=== PATIENT | female | born 1945 | race Caucasian/White ===

== ENCOUNTER 2016-05-25 15:45 | Emergency (ER) | payer MEDICARE, OTHER ==
[~2016-05-25 15:45] MED LIST: *UNABLE2; ALEVE220 MG PO; AMB10 PO; ANTIBIOTIC PO; ASA5GR PO; ASAB PO; ATEN25 PO; B COMPLETE PO; BIOIDENTICAL HORMONE PO; BIOIDENTICAL HORMONE SL; COSAMIN DS1 TAB PO; DIL2TAB PO; FISH-EPA1000 MG PO; FLONASE NAS; FORTAMET500 MG PO; GENTEAL MILD0.2 % OPH; GLUCPH PO; HCTZ25B PO; IBU800 PO; ILEVRO1.7 ML OPH; IVGENTA IV; K-99 PO; KDUR20 PO; KLOR-CON 1010 MEQ PO; KLOR-CON M2020 MEQ PO; KURIC2 % TOP; L20 PO; LEXAPRO10 PO; LOTEMAX OPH SUSP5 ML OPH; LOTEMAX0.5 % OPH; METANX PO; METHOC500B PO; MULTIPLE VIT PO; MULTIVIT/MIN PO; NEUR100 PO; NEUR400 PO; NORCO1 TA1 PO; NORV10 PO; OMNICEF300 PO; OS500+D PO; OSTEO BI-FLX PO; OTC ALLERGY TABLET PO; OTC FISH OIL PO; OXYCOD PO; PCET PO; POTASSIUM95 MG PO; PROAIR HFA INH; PROBIOTIC PO; PYR200 PO; QUESTRAN4 GM PO; RESTORIL30 MG PO; SINGULAIR1 PO; SKELAXIN8 PO; SPIRIVA INH; SYMBICORT 160/41 INH INH; TESS PO; VIT B-SIX 50 MG50 MG PO; VITAMIN D1000 UNI1 PO; VITAMIN D31000 UNIT PO; VITC500 PO; VOLTAREN1 % TOP; XARELTO20 MG PO; ZYRTEC ALLGY10 MG PO; [UNRECOGNIZED DRUG - CODE] IV; [UNRECOGNIZED DRUG - MIXTURE] PO; [UNRECOGNIZED DRUG - OTHER] SL
[2016-06-10] MEDS ORDERED: SINGULAIR1 PO (12:48)
[2016-06-19] MEDS ORDERED: NORCO1 TA1 PO (13:25)
[2016-10-23] MEDS ORDERED: ATEN25 PO (15:04)
[2016-10-23] MEDS ORDERED: XARELTO20 MG PO (15:04)
[2016-10-23] MEDS ORDERED: NEUR100 PO (15:05)
[2016-10-23] MEDS ORDERED: NEUR400 PO (15:05)
[2016-10-23] MEDS ORDERED: MONODOX100 MG PO (15:06)
[2016-10-23] MEDS ORDERED: SYMBICORT 160/41 INH INH (15:06)
[2016-10-23] MEDS ORDERED: K-TABS10 MEQ PO (15:06)
[2016-10-23] MEDS ORDERED: RESTORIL30 MG PO (15:07)
[2016-10-23] MEDS ORDERED: HYDROCHLOROT12.5 MG (15:07)
[2016-10-24] MEDS ORDERED: ULTRAM50 PO ×2 (11:31→11:32)
== END 2016-05-25 17:43 | disposition home or self-care (01) ==
LOC: ER 15:45
DX: S20.211A Contusion of right front wall of thorax, initial encounter (principal); S60.211A Contusion of right wrist, initial encounter; S80.01XA Contusion of right knee, initial encounter; I10 Essential (primary) hypertension; F41.9 Anxiety disorder, unspecified; E11.9 Type 2 diabetes mellitus without complications; Z87.442 Personal history of urinary calculi; Z88.2 Allergy status to sulfonamides; Z88.5 Allergy status to narcotic agent; Z88.8 Allergy status to other drugs, medicaments and biological substances; Z88.1 Allergy status to other antibiotic agents; Z79.899 Other long term (current) drug therapy; W19.XXXA Unspecified fall, initial encounter
CPT/HCPCS: 70450; 71020; 73110-LT; 73560-50; 99284; A9270-GY

== ENCOUNTER 2016-05-28 23:15 | Inpatient (IN) | payer MEDICARE, OTHER ==
--- NOTE | ~2016-05-28 | OP ---
Record Of Operation [facility] [address] [place]. [address] NAME: LORI THURMAN : 49 STATUS : ADM IN PAT#: [id number] AGE: 70 ADM/REG DATE : 05/28/16 MR#: [id number] REPORT SERV DATE: 06/05/16 DICTATED BY: Sam MORALES DATE: 06/04/16 REPORT STATUS : Draft TRANSCRIBED BY: MODL DATE: 06/04/16 DATE OF PROCEDURE: 06/04/2016 PREOPERATIVE DIAGNOSIS: Right distal ureteral stones with partial obstruction and urosepsis. POSTOPERATIVE DIAGNOSIS: Right distal ureteral stones with partial obstruction and urosepsis. PROCEDURES: Cystoscopy, right retrograde pyelography, stone manipulation, and double-J stent placement. SURGEON: Sam Morales M.D. ANESTHESIA: General with LMA. COMPLICATIONS: None. DRAINS: 7-Rwandan x 22 cm Contour double-J stent. BRIEF HISTORY: Ms. Thurman is a 70-year-old white female, admitted on 05/28/2016 with evidence of sepsis. She had urine and blood cultures positive for Proteus. I saw her yesterday in consultation. A CT scan showed 2 and 4 mm stones in the right distal ureter, and she has been added on for stent placement with planned delayed ureteroscopy. The risks of bleeding, infection, anesthesia among others were discussed including worsening of her infection. There were no unanswered questions. DESCRIPTION OF PROCEDURE: Under excellent general anesthesia, the patient was prepped and draped in the standard lithotomy position. Cystoscopy was performed with a 30-degree lens, revealed a moderate cystocele. The bladder showed normal orifices without tumors, stones, or foreign bodies. An 8-Rwandan cone-tipped catheter was used to perform a right retrograde pyelogram. It showed a filling defect in the right distal ureter consistent with known stone. There was some pelvic caliectasis, but the calices appeared reasonably delicate. I inserted an angled glidewire through a 5-Rwandan open-ended catheter and advanced the catheter into the renal pelvis. The urine was concentrated, but not grossly purulent. I re inserted the wire and then placed a 7-Rwandan x 22 cm Contour double-J stent which coiled nicely in the renal pelvis and bladder. The case was terminated. The patient was taken to the recovery. I planned delayed ureteroscopy in one to two weeks with stone extraction and stent exchange. PARVIN/SETH Sam Morales M.D. Record Of Operation [address] [address] NAME: LORI THURMAN : 49 STATUS : ADM IN PAT#: [id number] AGE: 70 ADM/REG DATE : 05/28/16 MR#: [id number] REPORT SERV DATE: 06/05/16 DICTATED BY: Sam MORALES DATE: 06/04/16 REPORT STATUS : Draft TRANSCRIBED BY: SETH DATE: 06/04/16 / [id number] CC: MD Fawn Ash M.D.
--- NOTE | ~2016-05-28 | HP ---
History And Physical [place] [id number] [facility] [place]. [address] NAME: LORI THURMAN : 49 STATUS : ADM IN [facility]#: [id number] AGE: 70 ADM/REG DATE : 05/28/16 MR#: [id number] REPORT SERV DATE: 05/29/16 DICTATED BY: BARBI BANDA DATE: 05/29/16 REPORT STATUS : Draft TRANSCRIBED BY: MODMc DATE: 05/29/16 DATE OF ADMISSION: 05/28/2016 CHIEF COMPLAINT: Cough. HISTORY OF PRESENT ILLNESS: The patient is a 70-year-old white female with a past medical history of type 2 diabetes, hypertension, and obstructive sleep apnea who [facility]. The patient is not a great historian and so is unable to provide the best of history. Per the patient, she was last hospitalized here back in January of last year at which time she had an infected left knee prosthetic which required a left knee arthroplasty with irrigation and debridement. She says that she has been on doxycycline since that time for the left knee septic arthritis. The patient noticed that since that time, she has had persistent low-grade fevers up to about 100 degrees Fahrenheit at home. She also notes an intermittent cough that recently has worsened and is productive of clear phlegm. She notes that two nights ago, she had several episodes of nausea and vomiting. She reports a decreased p.o. intake with poor appetite over the last several days as well. She notes intermittent subjective chills. No sweats. She endorses some shortness of breath over the last few days as well. She says that her home health nurse noticed that she was little ashen and yanez looking and so sent her here to the emergency room. Here, she had evidence of pneumonia on her chest x-ray and hypotension that was refractory to IV fluids so central line was placed. She was started on vasopressors and sent to the ICU for further management. PAST MEDICAL HISTORY: 1. Type 2 diabetes. 2. Anxiety. 3. Depression. 4. History of nephrolithiasis with recurrent urinary tract infection. 5. Sarcoidosis. 6. Obstructive sleep apnea. 7. Hypertension. 8. Recent left knee septic arthritis in January 2016. HOME MEDICATIONS: See medication reconciliation form. ALLERGIES: INCLUDE SULFA AND FLUOROQUINOLONES. SOCIAL HISTORY: No tobacco, alcohol, or IV drug abuse. FAMILY HISTORY: Reviewed and positive for diabetes and coronary artery disease. REVIEW OF SYSTEMS: A 10-point review of systems negative except as mentioned in the HPI. PHYSICAL EXAMINATION: VITAL SIGNS: Temperature 100.4, heart rate 69, respiratory rate 27, blood pressure 88/53. History And Physical [place] [address] [place]. [address] NAME: LORI THURMAN : 49 STATUS : ADM IN [facility]#: [id number] AGE: 70 ADM/REG DATE : 05/28/16 MR#: [id number] REPORT SERV DATE: 05/29/16 DICTATED BY: BARBI BANDA DATE: 05/29/16 REPORT STATUS : Draft TRANSCRIBED BY: SETH DATE: 05/29/16 GENERAL: Elderly-appearing female, in no acute distress. HEENT: Pupils are equal, round, and reactive to light. Extraocular movements intact. Oropharynx clear. Dry mucous membranes. NECK: Supple. Nontender. No lymphadenopathy. No thyromegaly. No jugular venous distention. LUNGS: Crackles in anterior lung clark bilaterally. CARDIOVASCULAR: Regular rate and rhythm. No murmurs, rubs, or gallops. ABDOMEN: Soft, nontender, nondistended. Positive bowel sounds. No hepatosplenomegaly. EXTREMITIES: No cyanosis, clubbing, or edema. NEUROLOGIC: Alert and oriented x3. Cranial nerves intact. PSYCH: Mood appropriate. LABS AND IMAGING: Influenza screen negative. Metabolic profile remarkable for BUN of 22, creatinine of 1.8, lactic acid 2.5. [place] [address] with 90% neutrophils. Blood gas with a pH of 7.4, pCO2 of 32, pO2 of 53 on 28% FiO2. Urinalysis with moderate leukocyte esterase, greater than 182 white blood cells, negative nitrite. Chest x-ray shows some bibasilar airspace disease versus atelectasis. ASSESSMENT AND PLAN: The patient is a 70-year-old female with a past medical history of diabetes, hypertension, recent septic left knee arthritis who now presents with low-grade fevers, poor p.o. intake, nausea, vomiting, cough with potential evidence of pneumonia and septic shock. 1. Septic shock. The patient is status post IV fluid resuscitation. She is on Levophed. We will continue her Levophed to maintain a mean arterial pressure greater than 65. We will check blood cultures x2 as well as sputum culture. We will also get a procalcitonin and a serum cortisol level. We will begin empiric antibiotics for potential pneumonia and follow up culture data. 2. Community-acquired pneumonia. We will empirically begin community-acquired pneumonia coverage with Rocephin and azithromycin. We will follow up cultures. I will also check urine Legionella and urine Strep pneumo antigen. Influenza screen is negative. We will wean her oxygen as tolerated to maintain sats greater than 90%. I discussed the possibility of intubation with the patient, and she would like to be intubated for potentially reversible disease such as pneumonia but would not want long-term life support therapy in a terminal situation. 3. Acute renal failure. The patient's creatinine is slightly elevated at 1.8. We will maintain a MAP greater than 65 and monitor her urine output and electrolytes closely. 4. Type [address] on sliding scale insulin and give her diabetic diet. 5. The patient will be on heparin for DVT prophylaxis and Protonix for gastrointestinal prophylaxis. 6. The patient is full code. Total critical care time spent on this patient was 40 minutes. VON/SETH History And Physical [address] [address] NAME: LORI THURMAN : 49 STATUS : ADM IN [facility]#: [id number] AGE: 70 ADM/REG DATE : 05/28/16 MR#: [id number] REPORT SERV DATE: 05/29/16 DICTATED BY: BARBI BANDA DATE: 05/29/16 REPORT STATUS : Draft TRANSCRIBED BY: SETH DATE: 05/29/16 Barbi Banda MD / [id number] CC: MD Fawn Ash M.D.
--- NOTE | ~2016-05-28 | CN ---
Consultation Report [facility] [address] [place]. [address] NAME: LORI THURMAN : 49 STATUS : ADM IN PAT#: [id number] AGE: 70 ADM/REG DATE : 05/28/16 MR#: [id number] REPORT SERV DATE: 06/04/16 DICTATED BY: Sam MORALES DATE: 06/04/16 REPORT STATUS : Draft TRANSCRIBED BY: SETH DATE: 06/04/16 CONSULTATION DATE OF CONSULTATION: 06/03/2016 CHIEF COMPLAINT: Proteus mirabilis urosepsis. HISTORY OF PRESENT ILLNESS: Ms. Thurman is a 70-year-old white female, well known to me with a history of stone disease and previous urosepsis, status post multiple previous procedures. She was admitted on 05/28/2016, with a cough and concerns of problems with her chronically infected left knee prosthesis. She was found to have inflammatory urine and culture from 05/28/2016 that grew Proteus mirabilis, subsequently 2:2 blood cultures were positive for Proteus mirabilis as well, she is on Rocephin. In addition, she had a urine culture on 05/29/2016, positive for Enterococcus. She has been recommended that her antibiotics be changed to ampicillin or Ancef today. I discussed with her from a urologic standpoint. She does not really have any symptoms. She has nonspecific back pain, that is nonlateralizing. Her white count went up to 15,000 yesterday. T-max is 99.6. CT scan 05/10, showed bilateral renal stones, but no obstructing stones were or hydronephrosis. PAST MEDICAL HISTORY: Hypertension, cardiac dysrhythmia, sleep apnea, arthritis, diabetes, depression, peripheral neuropathy, urolithiasis, pulmonary embolisms, chronic left knee infection. PAST SURGICAL HISTORY: 1. She has had multiple urologic procedures since July of 2013, including multiple stent placements, ESWL, ureteroscopy with stone extraction. 2. Knee and shoulder surgery. 3. Cholecystectomy. 4. Hysterectomy. 5. Left breast lumpectomy. 6. Tonsillectomy. 7. Pacemaker. 8. Left arm surgery. CURRENT MEDICATIONS: Tenormin, Rocephin, Questran, Colace, Vibramycin, Neurontin, singular, Mycostatin, Xarelto, Restoril, Spiriva, in addition to p.r.n. medications. ALLERGIES: SULFA, PREDNISONE, CIPRO AND SHE USED TO TAKE CELECOXIB, IN ADDITION ADVERSE REACTION TO MORPHINE, CODEINE, COUMADIN, AND LOVENOX. SOCIAL HISTORY: The patient denies use of tobacco or alcohol. FAMILY HISTORY: Negative for urologic disease. Consultation Report [place] [address] [place]. [address] NAME: LORI THURMAN : 49 STATUS : ADM IN PAT#: [id number] AGE: 70 ADM/REG DATE : 05/28/16 MR#: [id number] REPORT SERV DATE: 06/04/16 DICTATED BY: Sam MORALES DATE: 06/04/16 REPORT STATUS : Draft TRANSCRIBED BY: SETH DATE: 06/04/16 REVIEW OF SYSTEMS: A full 12-point review of systems is negative except as noted above. PHYSICAL EXAMINATION: GENERAL: Uncomfortable appearing 70-year-old white female. VITAL SIGNS: Currently afebrile with normal vital signs. HEENT: Normocephalic and atraumatic. LUNGS: No respiratory distress. HEART: Regular rate and rhythm. ABDOMEN: Protuberant, nontender, and nondistended. No CVA tenderness elicited. EXTREMITIES: No peripheral edema noted. The patient is ambulatory. PERTINENT LABORATORY: Creatinine 0.59 and white count 10,500. IMPRESSION: 1. Proteus mirabilis urosepsis. 2. History of urolithiasis. PLAN: 1. I agree with the change to sensitivity directed antibiotics, that has already been ordered today. 2. We will get a CT, stones searched today. I think it is preferable to have an ultrasound to make sure that there is no obstructing stone or other urologic problem that needs intervention. PARVIN/SETH Sam Morales M.D. / [id number] CC: MD Fawn Ash M.D.
--- NOTE | ~2016-05-28 | IDS ---
Interim Discharge Summary [facility] [address] [place]. [address] NAME: LORI THURMAN : 49 STATUS : ADM IN [facility]#: [id number] AGE: 70 ADM/REG DATE : 05/28/16 MR#: [id number] REPORT SERV DATE: 06/04/16 DICTATED BY: DATE: REPORT STATUS : Draft TRANSCRIBED BY: MODL DATE: 06/03/16 ADMISSION DATE: 05/28/2016 DISCHARGE DATE: DIAGNOSES: Current interim discharge diagnoses list includes: 1. Proteus bacteremia. 2. Shock with hypotension. 3. Sepsis. 4. Urosepsis. 5. Acute kidney injury. 6. Hypoxemia. 7. Chronic anemia. 8. Diabetes mellitus type 2. 9. Hypertension. 10.Status post fall. 11.Obstructive sleep apnea. 12.Morbid obesity. HISTORY OF PRESENT ILLNESS: This is a 70-year-old white female with a past medical history of left knee septic arthritis for which she is following with Dr. Talavera on chronic doxycycline treatment for infected left knee prosthesis and left knee arthroplasty and I and D on 02/08 at [place]. Please see admission H and P per Dr. Shailesh Banda on 05/28/2016. Her admission diagnosis was cough. PROCEDURES AND IMAGIN. 05/28/2016, portable chest x-ray showed venous congestion and interstitial edema with bibasilar atelectasis and stable enlargement of the cardiac silhouette with left-sided pacemaker device. 2. 05/30/2016, portable chest x-ray showed diffuse interstitial opacity, likely interstitial edema, stable cardiomegaly. 3. 05/30/2016, right knee x-ray showed osteoarthritis with probable calcified intra- articular loose bodies and no acute right knee abnormality. 4. 05/31/2016, portable chest x-ray showed increasing vascular congestion with increasing right perihilar and right lung base atelectasis and/or infiltrate. 5. 06/03/2016, CAT scan with kidney stone protocol showed interval development of mild right obstructive uropathy with a 0.4 and 0.2 cm pair of calculi within the distal right ureter, a few centimeters above the ureteropelvic junction. Bilateral nonobstructive nephrolithiasis with overall calculus burden worse in the left compared to the right kidney. Interval development of small right pleural effusion since prior CT of the abdomen 1 month prior. HOSPITAL COURSE: The patient was discharged from CCU yesterday and I have only taken care of the patient today on 06/03/2016. The patient was admitted with a large UTI and a procalcitonin of 81.68, and a lactate of 2.5, and her urine culture came back with Proteus mirabilis. The patient has continued to be treated with Rocephin IV through this date. The patient also came back with 2 positive blood cultures of Proteus Mirabella. On 06/01/2016, Interim Discharge Summary [facility] [address] [place]. [address] NAME: LORI THURMAN : 49 STATUS : ADM IN [facility]#: [id number] AGE: 70 ADM/REG DATE : 05/28/16 MR#: [id number] REPORT SERV DATE: 06/04/16 DICTATED BY: DATE: REPORT STATUS : Draft TRANSCRIBED BY: MODL DATE: 06/03/16 the patient had a lower respiratory culture that showed abundant growth of yeast. The patient is running a low-grade temperature today, 99.4. Patient's white count is climbing back up from 10.5 to 15.8. Pharmacy had recommended to change the patient to p.o. ampicillin. After discussion with the patient and discovering her history of left knee sepsis and already being a patient of Dr. Talavera's, it was decided to discuss with Dr. Talavera, his recommendations for antibiotic for possible discharge and also to discuss about the cessation of the doxycycline during patient's stay. Dr. Talavera has consented to see the patient and to continue the IV Rocephin. He also recommended to have Dr. Brennan see the patient since the patient has had urosepsis in the past. The patient did have a clear CT of the kidneys several months prior, but has had stents and hydronephrosis before. He will be following the patient as well as Dr. Brennan. LABORATORY DATA: The patient's current labs. Sodium is 140, potassium is 4.0, chloride is 102, bicarb is 21, BUN is 8, creatinine is 0.61, GFR is 93, glucose is 92, calcium 9.0, magnesium is 1.9, phosphorus is 3.4. WBCs 15.8, hemoglobin 10.6, hematocrit 33.7, platelets 376, neutrophils are 12.62. The patient's T-max in 24 hours is 99.4. The patient is diaphoretic and is continuing to have some chilling which she says has been happening since she had her incidence of knee sepsis in January. SLC/MODL Jennifer Best NP / [id number] CC: Shailesh Banda MD
--- NOTE | ~2016-05-28 | DS ---
Discharge Summary [facility] [address] [place]. [address] NAME: LORI THURMAN : 49 STATUS : DIS IN PAT#: [id number] AGE: 70 ADM/REG DATE : 05/28/16 MR#: [id number] REPORT SERV DATE: 06/07/16 DICTATED BY: KIA NEELY DATE: 06/06/16 REPORT STATUS : Draft TRANSCRIBED BY: MODL DATE: 06/06/16 ADMISSION DATE: 05/28/2016 DISCHARGE DATE: 06/06/2016 CONSULTING PHYSICIAN: Dr. Talavera for ID. FINAL DIAGNOSES: 1. Proteus bacteremia and urinary tract infection. 2. Right ureterolithiasis status post placement of double-J stent. 3. Hypertension. 4. History of permanent pacemaker. 5. Obstructive sleep apnea. 6. 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 7. Sarcoidosis. 8. Status post septic shock. 9. Status post acute kidney injury. 10.Status post hypoxemia. 11.Status post fall. 12.Chronic anemia. 13.Morbid obesity. 14.Anxiety and depression. HOSPITAL COURSE: Please refer to the H and P done by Dr. Banda, dated on 02/29/2016 and the interim discharge summary done by Jennifer Best and . Since I took care of this patient, the patient was already improving and wants to go home. However, the patient still has this right ureterolithiasis and Dr. Brennan did a procedure which includes a cystoscopy, right retrograde pyelography, stone manipulation, and double-J stent placement. The stone was not removed and the plan is for her to follow up outpatient with Dr. Brennan to have this stone removal probably a week from now. Meanwhile, we already got the bacteria, which was Proteus, which is the same with a urinary tract infection and bacteremia and Dr. Talavera wanted the patient to continue the IV antibiotics. The patient was not too keen on the IV antibiotics, but she would want the best for her. So a midline will be placed today and she will be continuing nine more days of IV antibiotics. The patient will now be discharged with the above diagnosis. She will follow up with her PCP, Fawn Moore, in one to two weeks. Follow up with Dr. Brennan in a week. Follow up with orthopedic surgeon as scheduled in outpatient and she will be having Rocephin a g IV daily until 06/14/2016 with a weekly CBC and complete metabolic panel, the rest of her home medications would include atenolol 25 mg at bedtime, Questran 4 g a day, doxycycline 100 mg twice a day, gabapentin 400 mg at bedtime and 200 mg in the morning, Singulair 10 mg in the morning, fatty acid 1200 mg a day, Xarelto 20 mg with supper, Restoril 15 mg at bedtime, Spiriva one capsule inhaled a day, Symbicort 160/4.5 two puffs twice a day. She will be off her Norvasc, Lasix, and potassium because her blood pressure has been in the low normal. She can continue her Metanx one tablet twice a day, vitamin C 1000 mg a day, ProAir, and Flonase as needed. Tylenol and as needed. This has been discussed with the patient. She agreed and understood the plan. Discharge Summary [address] [address] NAME: LORI THURMAN : 49 STATUS : DIS IN PAT#: [id number] AGE: 70 ADM/REG DATE : 05/28/16 MR#: [id number] REPORT SERV DATE: 06/07/16 DICTATED BY: KIA NEELY. DATE: 06/06/16 REPORT STATUS : Draft TRANSCRIBED BY: SETH DATE: 06/06/16 TIME SPENT: 35 minutes. EDITH/SETH Kia Neely M.D. / [id number] CC: MD Fawn Ash M.D.
[2016-05-28 21:00] LABS: BASOPHILS 0.2 %; BASOPHILS ABSOLUTE 0.04 10/3/uL (0.0-0.16); EOSINOPHILS 0 %; EOSINOPHILS ABSOLUTE 0.01 10/3/uL (0.0-0.53); HEMOGLOBIN 9.2 g/dL (12.0-16.0); IMMATURE GRANULOCYTES 0.6 %; IMMATURE GRANULOCYTES ABSOLUTE 0.15 10/3/uL (0.0-0.11); LYMPHOCYTES 4.4 %; LYMPHOCYTES ABSOLUTE 1.12 10/3/uL (0.67-4.30); MEAN CORPUS HGB CONC 30.8 g/dL (32.0-36.0); MEAN CORPUSCULAR HEMOGLOB 26.4 pg (26.0-34.0); MEAN CORPUSCULAR VOLUME 85.7 fL (80-100); MEAN PLATELET VOLUME 9.8 fL (9.2-13.0); MONOCYTES ABSOLUTE 1.02 10/3/uL (0.21-1.20); NEUTROPHILS 90.8 %; NEUTROPHILS ABSOLUTE 23.33 10/3/uL (2.02-8.40); PLATELET COUNT 310 10/3/uL (150-400); RBC DISTRIBUTION WIDTH 17.6 % (12.0-16.0); RED CELL COUNT 3.49 10/6/uL (4.0-5.6)
[2016-05-28 21:01] LABS: HEMATOCRIT 29.9 % (36.0-48.0); WHITE BLOOD CELLS 25.7 10/3/uL (4.5-10.5)
[2016-05-28 21:02] LABS: MANUAL DIFF NO %
[2016-05-28 21:03] LABS: ER CBC TAT 0 Hrs 16 Mins
[2016-05-28 21:05] LABS: INTERNATIONAL NORMAL RATI 2.6 UNITS (-); PROTIME (NOT ORD) 27.9 SEC (12.0-14.5)
[2016-05-28 21:09] LABS: INFLUENZA A SCREEN NEGATIVE (NEGATIVE); INFLUENZA B SCREEN NEGATIVE (NEGATIVE)
[2016-05-28 21:11] LABS: CALCIUM, SERUM 8.1 MG/DL (8.5-10.4); CHLORIDE, SERUM 108 MMOL/L (96-112); GLUCOSE, SERUM 125 MG/DL (60-99); SGPT(ALT) 18 U/L (5-65); SODIUM, SERUM 141 MMOL/L (135-148); TOTAL BILIRUBIN 0.8 MG/DL (0-1.2)
[2016-05-28 21:12] LABS: A/G RATIO 0.7 (0.7-1.9); ALBUMIN 2.3 G/DL (3.5-5.0); ALKALINE PHOSPHATASE 70 U/L (45-117); BUN (BLOOD UREA NITROGEN) 20 MG/DL (6-23); CO2 (CARBON DIOXIDE) 22 MMOL/L (24-34); CREATININE 1.84 MG/DL (0.55-1.02); GFR AFRICAN AMERICAN 32 ML/MIN (>=60); GFR NON AFRICAN AMERICAN 28 ML/MIN (>=60); GLOBULIN 3.1 G/DL (2.5-4.1); SGOT(AST) 27 U/L (5-40); TOTAL PROTEIN 5.4 G/DL (6.0-8.5)
[2016-05-28 21:19] LABS: BAND NEUTROPHILS 20 %; ELLIPTOCYTES 1+ (3-10/OIF) (0-2/OIF); ER DIFF TAT 0 Hrs 34 Mins; LYMPHOCYTES 6 %; LYMPHOCYTES ABSOLUTE (CALC) 1.54 10/3/uL (0.67-4.30); MONOCYTES 3 %; MONOCYTES ABSOLUTE (CALC) 0.77 10/3/uL (0.21-1.20); NEUTROPHILS ABSOLUTE (CALC) 23.39 10/3/uL (2.02-8.40); PLATELET ESTIMATE ADQ (ADEQUATE); SEGMENTED NEUTROPHIL (0) 71 %; TOTAL NUCLEATED CELLS 100
[2016-05-28 21:57] LABS: BE (BASE EXCESS) -4.8 MEQ/L (0 +/- 2.5); DEVICE NC; HCO3 (ACTUAL BICARBONATE) 19.3 MEQ/L (23-27); HEMOBLOGIN CONTENT 9.5 G/DL (12-16); INSTRUMENT SERIAL # 8087; METHEMOGLOBIN 0.4 % (0-3); O2 CONTENT 11.3 VOL% (18-24); PCO2 (CO2 TENSION) 32 MMHG (35-45); PO2 (O2 TENSION) 53 MMHG (79-93); SAMPLE Arterial
[2016-05-28 23:30] LABS: ASCORBIC ACID (UR NOT ORDER) NEG (NEG); BILIRUBIN, URINE NEGATIVE (NEG); ER URINALYSIS TAT 0 Hrs 00 Mins; KETONE, URINE NEGATIVE (NEG); LEUKOCYTE ESTERASE(NOT OR MOD (NEG); NITRITE (URINE) NEG (NEG)
[2016-05-28 23:31] LABS: WBC (NOT ORDERED) (RFLEX) > 182 (0-5)
[2016-05-29] MEDS ORDERED: MONODOX100 MG PO (02:05)
[2016-05-29] MEDS ORDERED: XARELTO20 MG PO (02:05)
[2016-05-29] MEDS ORDERED: ATEN25 PO (02:06)
[2016-05-29] MEDS ORDERED: L20 PO (02:06)
[2016-05-29] MEDS ORDERED: RESTORIL30 MG PO (02:06)
[2016-05-29] MEDS ORDERED: NORV10 PO (02:06)
[2016-05-29] MEDS ORDERED: NEUR100 PO (02:07)
[2016-05-29] MEDS ORDERED: KDUR20 PO (02:07)
[2016-05-29] MEDS ORDERED: PREVALITE4 G1 PO (02:07)
[2016-05-29] MEDS ORDERED: NEUR400 PO (02:07)
[2016-05-29] MEDS ORDERED: METANX PO (02:08)
[2016-05-29] MEDS ORDERED: TESS PO (02:08)
[2016-05-29] MEDS ORDERED: FISH OIL1200 MG PO (02:09)
[2016-05-29] MEDS ORDERED: VITC500 PO (02:10)
[2016-05-29] MEDS ORDERED: SYMBICORT 160/41 INH INH (02:11)
[2016-05-29] MEDS ORDERED: SPIRIVA INH (02:11)
[2016-05-29] MEDS ORDERED: FLONASE NAS (02:11)
[2016-05-29] MEDS ORDERED: PROAIR HFA INH (02:11)
[2016-05-29] MEDS ORDERED: 8 HOUR650 MG PO (02:12)
[2016-05-29] MEDS ORDERED: SINGULAIR1 PO (02:12)
[2016-05-29] MEDS ORDERED: GENTEAL 15 ML O15 ML OPH (02:13)
[2016-05-29 04:28] LABS: ASCORBIC ACID (UR NOT ORDER) NEG (NEG); BILIRUBIN, URINE NEGATIVE (NEG); KETONE, URINE NEGATIVE (NEG); LEUKOCYTE ESTERASE(NOT OR LARGE (NEG); WBC (NOT ORDERED) (RFLEX) > 182 (0-5)
[2016-05-29 05:03] LABS: HEMATOCRIT 31.1 % (36.0-48.0); HEMOGLOBIN 9.6 g/dL (12.0-16.0); MEAN CORPUS HGB CONC 30.9 g/dL (32.0-36.0); MEAN CORPUSCULAR HEMOGLOB 26.4 pg (26.0-34.0); MEAN CORPUSCULAR VOLUME 85.7 fL (80-100); MEAN PLATELET VOLUME 10.2 fL (9.2-13.0); PLATELET COUNT 236 10/3/uL (150-400); RED CELL COUNT 3.63 10/6/uL (4.0-5.6); WHITE BLOOD CELLS 24.4 10/3/uL (4.5-10.5)
[2016-05-29 05:12] LABS: BUN (BLOOD UREA NITROGEN) 21 MG/DL (6-23); CALCIUM, SERUM 7.7 MG/DL (8.5-10.4); CHLORIDE, SERUM 111 MMOL/L (96-112); CO2 (CARBON DIOXIDE) 17 MMOL/L (24-34); CREATININE 1.09 MG/DL (0.55-1.02); GFR AFRICAN AMERICAN 60 ML/MIN (>=60); GFR NON AFRICAN AMERICAN 52 ML/MIN (>=60); GLUCOSE, SERUM 89 MG/DL (60-99); PHOSPHORUS, SERUM 4.2 MG/DL (2.5-4.5); POTASSIUM, SERUM 4.4 MMOL/L (3.5-5.3); SODIUM, SERUM 141 MMOL/L (135-148)
[2016-05-29 05:12] LABS: MANUAL DIFF YES %
[2016-05-29 05:31] LABS: BAND NEUTROPHILS 16 %; LYMPHOCYTES 4 %; LYMPHOCYTES ABSOLUTE (CALC) 0.98 10/3/uL (0.67-4.30); MONOCYTES 2 %; MONOCYTES ABSOLUTE (CALC) 0.49 10/3/uL (0.21-1.20); NEUTROPHILS ABSOLUTE (CALC) 22.94 10/3/uL (2.02-8.40); PLATELET ESTIMATE ADQ (ADEQUATE); RBC MORPHOLOGY ABN (NORMAL); SEGMENTED NEUTROPHIL (0) 78 %; TOTAL NUCLEATED CELLS 100
[2016-05-29 05:38] LABS: PROCALCITONIN 81.68 ng/mL (<0.5)
[2016-05-30 05:29] LABS: CALCIUM, SERUM 8.4 MG/DL (8.5-10.4); CHLORIDE, SERUM 111 MMOL/L (96-112); CO2 (CARBON DIOXIDE) 20 MMOL/L (24-34); CREATININE 0.64 MG/DL (0.55-1.02); GFR AFRICAN AMERICAN 106 ML/MIN (>=60); GFR NON AFRICAN AMERICAN 92 ML/MIN (>=60); GLUCOSE, SERUM 98 MG/DL (60-99); SODIUM, SERUM 142 MMOL/L (135-148)
[2016-05-30 05:31] LABS: BUN (BLOOD UREA NITROGEN) 15 MG/DL (6-23); PHOSPHORUS, SERUM 2.3 MG/DL (2.5-4.5); POTASSIUM, SERUM 3.2 MMOL/L (3.5-5.3)
[2016-05-30 05:39] LABS: BASOPHILS 0.3 %; BASOPHILS ABSOLUTE 0.04 10/3/uL (0.0-0.16); EOSINOPHILS 0.2 %; EOSINOPHILS ABSOLUTE 0.03 10/3/uL (0.0-0.53); HEMATOCRIT 28.6 % (36.0-48.0); HEMOGLOBIN 8.9 g/dL (12.0-16.0); IMMATURE GRANULOCYTES 0.6 %; IMMATURE GRANULOCYTES ABSOLUTE 0.09 10/3/uL (0.0-0.11); LYMPHOCYTES 6.2 %; LYMPHOCYTES ABSOLUTE 0.98 10/3/uL (0.67-4.30); MEAN CORPUS HGB CONC 31.1 g/dL (32.0-36.0); MEAN CORPUSCULAR HEMOGLOB 26.8 pg (26.0-34.0); MEAN CORPUSCULAR VOLUME 86.1 fL (80-100); MEAN PLATELET VOLUME 9.9 fL (9.2-13.0); MONOCYTES 3.9 %; MONOCYTES ABSOLUTE 0.62 10/3/uL (0.21-1.20); NEUTROPHILS 88.8 %; PLATELET COUNT 190 10/3/uL (150-400); RBC DISTRIBUTION WIDTH 18.4 % (12.0-16.0); RED CELL COUNT 3.32 10/6/uL (4.0-5.6); WHITE BLOOD CELLS 15.8 10/3/uL (4.5-10.5)
[2016-05-30 05:46] LABS: MANUAL DIFF NO %
[2016-05-30 23:36] LABS: CALCIUM, SERUM 8.4 MG/DL (8.5-10.4); CHLORIDE, SERUM 109 MMOL/L (96-112); CO2 (CARBON DIOXIDE) 22 MMOL/L (24-34); CREATININE 0.73 MG/DL (0.55-1.02); GFR AFRICAN AMERICAN 98 ML/MIN (>=60); GFR NON AFRICAN AMERICAN 85 ML/MIN (>=60); POTASSIUM, SERUM 3.9 MMOL/L (3.5-5.3); SODIUM, SERUM 141 MMOL/L (135-148)
[2016-05-30 23:37] LABS: BUN (BLOOD UREA NITROGEN) 10 MG/DL (6-23); GLUCOSE, SERUM 129 MG/DL (60-99); PHOSPHORUS, SERUM 1.5 MG/DL (2.5-4.5)
[2016-05-31 05:15] LABS: BASOPHILS 0.2 %; BASOPHILS ABSOLUTE 0.02 10/3/uL (0.0-0.16); EOSINOPHILS 2.7 %; EOSINOPHILS ABSOLUTE 0.34 10/3/uL (0.0-0.53); HEMATOCRIT 27.9 % (36.0-48.0); HEMOGLOBIN 8.7 g/dL (12.0-16.0); IMMATURE GRANULOCYTES 0.4 %; IMMATURE GRANULOCYTES ABSOLUTE 0.05 10/3/uL (0.0-0.11); LYMPHOCYTES 10.2 %; MEAN CORPUS HGB CONC 31.2 g/dL (32.0-36.0); MEAN CORPUSCULAR HEMOGLOB 26.4 pg (26.0-34.0); MEAN CORPUSCULAR VOLUME 84.8 fL (80-100); MEAN PLATELET VOLUME 10.3 fL (9.2-13.0); MONOCYTES 6.5 %; MONOCYTES ABSOLUTE 0.83 10/3/uL (0.21-1.20); NEUTROPHILS ABSOLUTE 10.21 10/3/uL (2.02-8.40); PLATELET COUNT 228 10/3/uL (150-400); RBC DISTRIBUTION WIDTH 18.5 % (12.0-16.0); RED CELL COUNT 3.29 10/6/uL (4.0-5.6); WHITE BLOOD CELLS 12.8 10/3/uL (4.5-10.5)
[2016-05-31 05:19] LABS: MANUAL DIFF NO %
[2016-05-31 05:29] LABS: ALBUMIN 1.9 G/DL (3.5-5.0); BUN (BLOOD UREA NITROGEN) 10 MG/DL (6-23); CALCIUM, SERUM 8.3 MG/DL (8.5-10.4); CHLORIDE, SERUM 110 MMOL/L (96-112); CO2 (CARBON DIOXIDE) 24 MMOL/L (24-34); CREATININE 0.54 MG/DL (0.55-1.02); GFR AFRICAN AMERICAN 112 ML/MIN (>=60); GFR NON AFRICAN AMERICAN 97 ML/MIN (>=60); POTASSIUM, SERUM 4.6 MMOL/L (3.5-5.3); SGOT(AST) 16 U/L (5-40); SGPT(ALT) 17 U/L (5-65); SODIUM, SERUM 144 MMOL/L (135-148); TOTAL BILIRUBIN 0.4 MG/DL (0-1.2); TOTAL PROTEIN 5.9 G/DL (6.0-8.5)
[2016-05-31 05:34] LABS: A/G RATIO 0.5 (0.7-1.9); GLUCOSE, SERUM 85 MG/DL (60-99); PHOSPHORUS, SERUM 3.5 MG/DL (2.5-4.5)
[2016-05-31 05:35] LABS: ALKALINE PHOSPHATASE 94 U/L (45-117)
[2016-05-31 20:28] LABS: POTASSIUM, SERUM 3.4 MMOL/L (3.5-5.3)
[2016-06-01 05:19] LABS: BASOPHILS 0.2 %; BASOPHILS ABSOLUTE 0.02 10/3/uL (0.0-0.16); EOSINOPHILS 3.6 %; EOSINOPHILS ABSOLUTE 0.31 10/3/uL (0.0-0.53); HEMATOCRIT 28.7 % (36.0-48.0); HEMOGLOBIN 8.9 g/dL (12.0-16.0); IMMATURE GRANULOCYTES 0.6 %; IMMATURE GRANULOCYTES ABSOLUTE 0.05 10/3/uL (0.0-0.11); LYMPHOCYTES ABSOLUTE 1.39 10/3/uL (0.67-4.30); MEAN CORPUSCULAR HEMOGLOB 26.3 pg (26.0-34.0); MEAN CORPUSCULAR VOLUME 84.7 fL (80-100); MEAN PLATELET VOLUME 10.1 fL (9.2-13.0); MONOCYTES 11.6 %; MONOCYTES ABSOLUTE 1.01 10/3/uL (0.21-1.20); PLATELET COUNT 228 10/3/uL (150-400); RBC DISTRIBUTION WIDTH 18.1 % (12.0-16.0); RED CELL COUNT 3.39 10/6/uL (4.0-5.6); WHITE BLOOD CELLS 8.7 10/3/uL (4.5-10.5)
[2016-06-01 05:21] LABS: MANUAL DIFF NO %
[2016-06-01 05:34] LABS: BUN (BLOOD UREA NITROGEN) 8 MG/DL (6-23); CALCIUM, SERUM 8.7 MG/DL (8.5-10.4); CHLORIDE, SERUM 103 MMOL/L (96-112); CO2 (CARBON DIOXIDE) 30 MMOL/L (24-34); CREATININE 0.68 MG/DL (0.55-1.02); GFR AFRICAN AMERICAN 104 ML/MIN (>=60); GFR NON AFRICAN AMERICAN 90 ML/MIN (>=60); GLUCOSE, SERUM 80 MG/DL (60-99); PHOSPHORUS, SERUM 2.8 MG/DL (2.5-4.5); POTASSIUM, SERUM 3.8 MMOL/L (3.5-5.3); SODIUM, SERUM 141 MMOL/L (135-148)
[2016-06-01 23:22] LABS: BUN (BLOOD UREA NITROGEN) 7 MG/DL (6-23); CALCIUM, SERUM 8.4 MG/DL (8.5-10.4); CHLORIDE, SERUM 103 MMOL/L (96-112); CO2 (CARBON DIOXIDE) 28 MMOL/L (24-34); CREATININE 0.56 MG/DL (0.55-1.02); GFR AFRICAN AMERICAN 111 ML/MIN (>=60); GFR NON AFRICAN AMERICAN 96 ML/MIN (>=60); PHOSPHORUS, SERUM 2.4 MG/DL (2.5-4.5); POTASSIUM, SERUM 3.7 MMOL/L (3.5-5.3); SODIUM, SERUM 139 MMOL/L (135-148)
[2016-06-01 23:24] LABS: GLUCOSE, SERUM 134 MG/DL (60-99)
[2016-06-02 04:25] LABS: BASOPHILS 0.3 %; BASOPHILS ABSOLUTE 0.03 10/3/uL (0.0-0.16); EOSINOPHILS 2.6 %; EOSINOPHILS ABSOLUTE 0.27 10/3/uL (0.0-0.53); HEMATOCRIT 30.6 % (36.0-48.0); HEMOGLOBIN 9.5 g/dL (12.0-16.0); IMMATURE GRANULOCYTES 1.3 %; IMMATURE GRANULOCYTES ABSOLUTE 0.14 10/3/uL (0.0-0.11); LYMPHOCYTES 13.4 %; LYMPHOCYTES ABSOLUTE 1.41 10/3/uL (0.67-4.30); MEAN CORPUSCULAR HEMOGLOB 26.2 pg (26.0-34.0); MEAN CORPUSCULAR VOLUME 84.5 fL (80-100); MONOCYTES 10.9 %; MONOCYTES ABSOLUTE 1.15 10/3/uL (0.21-1.20); NEUTROPHILS 71.5 %; NEUTROPHILS ABSOLUTE 7.51 10/3/uL (2.02-8.40); PLATELET COUNT 251 10/3/uL (150-400); RBC DISTRIBUTION WIDTH 17.9 % (12.0-16.0); RED CELL COUNT 3.62 10/6/uL (4.0-5.6); WHITE BLOOD CELLS 10.5 10/3/uL (4.5-10.5)
[2016-06-02 04:26] LABS: MANUAL DIFF NO %
[2016-06-02 04:41] LABS: BUN (BLOOD UREA NITROGEN) 8 MG/DL (6-23); CALCIUM, SERUM 8.9 MG/DL (8.5-10.4); CHLORIDE, SERUM 105 MMOL/L (96-112); CO2 (CARBON DIOXIDE) 30 MMOL/L (24-34); CREATININE 0.59 MG/DL (0.55-1.02); GFR AFRICAN AMERICAN 109 ML/MIN (>=60); GFR NON AFRICAN AMERICAN 94 ML/MIN (>=60); POTASSIUM, SERUM 3.9 MMOL/L (3.5-5.3); SODIUM, SERUM 143 MMOL/L (135-148)
[2016-06-02 04:45] LABS: GLUCOSE, SERUM 97 MG/DL (60-99); PHOSPHORUS, SERUM 3.9 MG/DL (2.5-4.5)
[2016-06-02 09:08] LABS: TROPONIN I <0.02 NG/ML (<0.05)
[2016-06-02 09:09] LABS: CK-MB < 0.5 NG/ML; CPK 25 U/L (0-200)
[2016-06-03 06:34] LABS: BUN (BLOOD UREA NITROGEN) 8 MG/DL (6-23); CHLORIDE, SERUM 102 MMOL/L (96-112); CO2 (CARBON DIOXIDE) 27 MMOL/L (24-34); CREATININE 0.61 MG/DL (0.55-1.02); GFR AFRICAN AMERICAN 108 ML/MIN (>=60); GFR NON AFRICAN AMERICAN 93 ML/MIN (>=60); GLUCOSE, SERUM 92 MG/DL (60-99); PHOSPHORUS, SERUM 3.4 MG/DL (2.5-4.5); SODIUM, SERUM 140 MMOL/L (135-148)
[2016-06-03 06:38] LABS: BASOPHILS 0.3 %; BASOPHILS ABSOLUTE 0.04 10/3/uL (0.0-0.16); EOSINOPHILS 1.7 %; EOSINOPHILS ABSOLUTE 0.27 10/3/uL (0.0-0.53); HEMOGLOBIN 10.6 g/dL (12.0-16.0); IMMATURE GRANULOCYTES 1.7 %; IMMATURE GRANULOCYTES ABSOLUTE 0.27 10/3/uL (0.0-0.11); LYMPHOCYTES 9.6 %; LYMPHOCYTES ABSOLUTE 1.52 10/3/uL (0.67-4.30); MEAN CORPUS HGB CONC 31.5 g/dL (32.0-36.0); MEAN CORPUSCULAR HEMOGLOB 26.6 pg (26.0-34.0); MEAN CORPUSCULAR VOLUME 84.7 fL (80-100); MEAN PLATELET VOLUME 10.1 fL (9.2-13.0); MONOCYTES 6.8 %; MONOCYTES ABSOLUTE 1.08 10/3/uL (0.21-1.20); NEUTROPHILS 79.9 %; NEUTROPHILS ABSOLUTE 12.62 10/3/uL (2.02-8.40); RBC DISTRIBUTION WIDTH 17.8 % (12.0-16.0); RED CELL COUNT 3.98 10/6/uL (4.0-5.6)
[2016-06-03 06:52] LABS: HEMATOCRIT 33.7 % (36.0-48.0); MANUAL DIFF NO %; PLATELET COUNT 376 10/3/uL (150-400); WHITE BLOOD CELLS 15.8 10/3/uL (4.5-10.5)
[2016-06-04 06:43] LABS: BASOPHILS 0.5 %; BASOPHILS ABSOLUTE 0.05 10/3/uL (0.0-0.16); EOSINOPHILS 2.5 %; EOSINOPHILS ABSOLUTE 0.27 10/3/uL (0.0-0.53); HEMATOCRIT 29.1 % (36.0-48.0); HEMOGLOBIN 9.2 g/dL (12.0-16.0); IMMATURE GRANULOCYTES 1.7 %; IMMATURE GRANULOCYTES ABSOLUTE 0.18 10/3/uL (0.0-0.11); LYMPHOCYTES ABSOLUTE 1.52 10/3/uL (0.67-4.30); MANUAL DIFF NO %; MEAN CORPUS HGB CONC 31.6 g/dL (32.0-36.0); MEAN CORPUSCULAR VOLUME 85.3 fL (80-100); MEAN PLATELET VOLUME 9.6 fL (9.2-13.0); MONOCYTES ABSOLUTE 0.76 10/3/uL (0.21-1.20); NEUTROPHILS 74.3 %; NEUTROPHILS ABSOLUTE 8.06 10/3/uL (2.02-8.40); PLATELET COUNT 329 10/3/uL (150-400); RED CELL COUNT 3.41 10/6/uL (4.0-5.6); WHITE BLOOD CELLS 10.8 10/3/uL (4.5-10.5)
[2016-06-04 06:54] LABS: ALBUMIN 2.1 G/DL (3.5-5.0); BUN (BLOOD UREA NITROGEN) 6 MG/DL (6-23); CALCIUM, SERUM 8.7 MG/DL (8.5-10.4); CHLORIDE, SERUM 106 MMOL/L (96-112); CO2 (CARBON DIOXIDE) 30 MMOL/L (24-34); CREATININE 0.54 MG/DL (0.55-1.02); GFR AFRICAN AMERICAN 112 ML/MIN (>=60); GFR NON AFRICAN AMERICAN 97 ML/MIN (>=60); GLUCOSE, SERUM 89 MG/DL (60-99); PHOSPHORUS, SERUM 3.6 MG/DL (2.5-4.5); POTASSIUM, SERUM 3.7 MMOL/L (3.5-5.3); SODIUM, SERUM 143 MMOL/L (135-148)
[2016-06-04 07:57] LABS: PROCALCITONIN 1.97 ng/mL (<0.5)
[2016-06-04 11:24] LABS: BUN (BLOOD UREA NITROGEN) 6 MG/DL (6-23); CALCIUM, SERUM 8.9 MG/DL (8.5-10.4); CHLORIDE, SERUM 105 MMOL/L (96-112); CO2 (CARBON DIOXIDE) 28 MMOL/L (24-34); GFR AFRICAN AMERICAN 115 ML/MIN (>=60); GFR NON AFRICAN AMERICAN 99 ML/MIN (>=60); GLUCOSE, SERUM 90 MG/DL (60-99); POTASSIUM, SERUM 3.8 MMOL/L (3.5-5.3); SODIUM, SERUM 141 MMOL/L (135-148)
[2016-06-05 06:25] LABS: BASOPHILS 0 %; EOSINOPHILS 0.1 %; EOSINOPHILS ABSOLUTE 0.01 10/3/uL (0.0-0.53); HEMATOCRIT 30.7 % (36.0-48.0); HEMOGLOBIN 9.7 g/dL (12.0-16.0); IMMATURE GRANULOCYTES 1.5 %; IMMATURE GRANULOCYTES ABSOLUTE 0.19 10/3/uL (0.0-0.11); MEAN CORPUS HGB CONC 31.6 g/dL (32.0-36.0); MEAN CORPUSCULAR HEMOGLOB 26.4 pg (26.0-34.0); MEAN CORPUSCULAR VOLUME 83.4 fL (80-100); MEAN PLATELET VOLUME 9.8 fL (9.2-13.0); MONOCYTES 4.3 %; MONOCYTES ABSOLUTE 0.54 10/3/uL (0.21-1.20); NEUTROPHILS 86.1 %; NEUTROPHILS ABSOLUTE 10.79 10/3/uL (2.02-8.40); RBC DISTRIBUTION WIDTH 17.8 % (12.0-16.0); RED CELL COUNT 3.68 10/6/uL (4.0-5.6); WHITE BLOOD CELLS 12.5 10/3/uL (4.5-10.5)
[2016-06-05 06:29] LABS: MANUAL DIFF NO %; PLATELET COUNT 497 10/3/uL (150-400)
[2016-06-06 05:53] LABS: BASOPHILS 0.3 %; BASOPHILS ABSOLUTE 0.04 10/3/uL (0.0-0.16); EOSINOPHILS 1.7 %; EOSINOPHILS ABSOLUTE 0.23 10/3/uL (0.0-0.53); HEMATOCRIT 28.9 % (36.0-48.0); HEMOGLOBIN 9.1 g/dL (12.0-16.0); IMMATURE GRANULOCYTES 0.9 %; IMMATURE GRANULOCYTES ABSOLUTE 0.12 10/3/uL (0.0-0.11); LYMPHOCYTES 12.3 %; LYMPHOCYTES ABSOLUTE 1.68 10/3/uL (0.67-4.30); MEAN CORPUS HGB CONC 31.5 g/dL (32.0-36.0); MEAN CORPUSCULAR HEMOGLOB 26.7 pg (26.0-34.0); MEAN CORPUSCULAR VOLUME 84.8 fL (80-100); MEAN PLATELET VOLUME 9.3 fL (9.2-13.0); MONOCYTES 5.8 %; MONOCYTES ABSOLUTE 0.79 10/3/uL (0.21-1.20); NEUTROPHILS ABSOLUTE 10.78 10/3/uL (2.02-8.40); PLATELET COUNT 496 10/3/uL (150-400); RED CELL COUNT 3.41 10/6/uL (4.0-5.6); WHITE BLOOD CELLS 13.6 10/3/uL (4.5-10.5)
[2016-06-06 06:02] LABS: MANUAL DIFF NO %
[2016-06-06 06:22] LABS: BUN (BLOOD UREA NITROGEN) 9 MG/DL (6-23); CALCIUM, SERUM 8.9 MG/DL (8.5-10.4); CHLORIDE, SERUM 110 MMOL/L (96-112); CO2 (CARBON DIOXIDE) 27 MMOL/L (24-34); CREATININE 0.57 MG/DL (0.55-1.02); GFR AFRICAN AMERICAN 110 ML/MIN (>=60); GFR NON AFRICAN AMERICAN 95 ML/MIN (>=60); GLUCOSE, SERUM 92 MG/DL (60-99); POTASSIUM, SERUM 3.9 MMOL/L (3.5-5.3); SODIUM, SERUM 146 MMOL/L (135-148)
[2016-06-06 07:08] LABS: PROCALCITONIN 0.73 ng/mL (<0.5)
[2016-06-06] MEDS ORDERED: VIBRATAB100 MG PO (13:11)
[2016-06-10] MEDS ORDERED: SINGULAIR1 PO (12:48)
[2016-06-19] MEDS ORDERED: NORCO1 TA1 PO (13:25)
[2016-10-23] MEDS ORDERED: XARELTO20 MG PO (15:04)
[2016-10-23] MEDS ORDERED: ATEN25 PO (15:04)
[2016-10-23] MEDS ORDERED: NEUR400 PO (15:05)
[2016-10-23] MEDS ORDERED: NEUR100 PO (15:05)
[2016-10-23] MEDS ORDERED: K-TABS10 MEQ PO (15:06)
[2016-10-23] MEDS ORDERED: SYMBICORT 160/41 INH INH (15:06)
[2016-10-23] MEDS ORDERED: MONODOX100 MG PO (15:06)
[2016-10-23] MEDS ORDERED: RESTORIL30 MG PO (15:07)
[2016-10-23] MEDS ORDERED: HYDROCHLOROT12.5 MG (15:07)
[2016-10-24] MEDS ORDERED: ULTRAM50 PO ×2 (11:31→11:32)
== END 2016-06-06 16:10 | disposition home health service (06) | DRG 853 ==
LOC: ER 23:15 → CCU 23:40 → 2SO 06-02 11:04
PROVIDERS: Emergency Medicine; Internal Medicine; Internal Medicine Critical Care Medicine; Nurse Practitioner Family
PROC: 0TC68ZZ Extirpation of Matter from Right Ureter, Via Natural or Artificial Opening Endoscopic (ICD-10-PCS; 2016-06-04)
PROC: 0T768DZ Dilation of Right Ureter with Intraluminal Device, Via Natural or Artificial Opening Endoscopic (ICD-10-PCS; 2016-06-04)
PROC: BT1D1ZZ Fluoroscopy of Right Kidney, Ureter and Bladder using Low Osmolar Contrast (ICD-10-PCS; principal; 2016-06-04 16:30)
DX: A41.89 Other specified sepsis (principal); J18.9 Pneumonia, unspecified organism; R65.21 Severe sepsis with septic shock; J96.01 Acute respiratory failure with hypoxia; N17.9 Acute kidney failure, unspecified; J90 Pleural effusion, not elsewhere classified; N13.8 Other obstructive and reflux uropathy; N20.1 Calculus of ureter; N39.0 Urinary tract infection, site not specified; E11.9 Type 2 diabetes mellitus without complications; D50.9 Iron deficiency anemia, unspecified; I10 Essential (primary) hypertension; G47.33 Obstructive sleep apnea (adult) (pediatric); E66.01 Morbid (severe) obesity due to excess calories; R09.02 Hypoxemia; F41.9 Anxiety disorder, unspecified; F32.9 Major depressive disorder, single episode, unspecified; D86.9 Sarcoidosis, unspecified; B96.4 Proteus (mirabilis) (morganii) as the cause of diseases classified elsewhere; B95.62 Methicillin resistant Staphylococcus aureus infection as the cause of diseases classified elsewhere; M19.90 Unspecified osteoarthritis, unspecified site; Z88.2 Allergy status to sulfonamides; Z88.8 Allergy status to other drugs, medicaments and biological substances; Z82.49 Family history of ischemic heart disease and other diseases of the circulatory system; Z83.3 Family history of diabetes mellitus; Z95.0 Presence of cardiac pacemaker; Z88.1 Allergy status to other antibiotic agents; Z88.5 Allergy status to narcotic agent; Z68.37 Body mass index [BMI] 37.0-37.9, adult; S20.211A Contusion of right front wall of thorax, initial encounter; S60.211A Contusion of right wrist, initial encounter; S80.01XA Contusion of right knee, initial encounter; W19.XXXA Unspecified fall, initial encounter; Z87.442 Personal history of urinary calculi
CPT/HCPCS: 36600; 70450; 71010; 71020; 73110-LT; 73560-50; 73560-RT; 74176; 74420; 80048; 80053; 80069; 81001; 82533; 82550; 82553; 82805; 82962; 83605; 83735; 84100; 84132; 84145; 84484; 85025; 85610; 87040; 87070; 87077; 87086; 87150; 87186; 87205; 87449; 87641; 87804; 93005; 94640; 96374; 97116-GP; 97161-GP; 99284; 99291; A9270-GY; C1758; C1769; C2617; C9113; G8978-CK-GP; G8979-CI-GP; J0456; J0692; J2405; J3010; Q9967

== ENCOUNTER 2016-06-11 11:28 | Day surgery (SDC) | payer MEDICARE, OTHER ==
[~2016-06-11 11:28] MED LIST changes: +8 HOUR650 MG PO; +FISH OIL1200 MG PO; +GENTEAL 15 ML O15 ML OPH; +MONODOX100 MG PO; +PREVALITE4 G1 PO; +VIBRATAB100 MG PO
[2016-06-19] MEDS ORDERED: NORCO1 TA1 PO (13:25)
[2016-10-23] MEDS ORDERED: XARELTO20 MG PO (15:04)
[2016-10-23] MEDS ORDERED: ATEN25 PO (15:04)
[2016-10-23] MEDS ORDERED: NEUR100 PO (15:05)
[2016-10-23] MEDS ORDERED: NEUR400 PO (15:05)
[2016-10-23] MEDS ORDERED: SYMBICORT 160/41 INH INH (15:06)
[2016-10-23] MEDS ORDERED: MONODOX100 MG PO (15:06)
[2016-10-23] MEDS ORDERED: K-TABS10 MEQ PO (15:06)
[2016-10-23] MEDS ORDERED: HYDROCHLOROT12.5 MG (15:07)
[2016-10-23] MEDS ORDERED: RESTORIL30 MG PO (15:07)
[2016-10-24] MEDS ORDERED: ULTRAM50 PO ×2 (11:31→11:32)
== END 2016-06-11 23:59 | disposition home or self-care (01) ==
LOC: SDC 11:28
DX: N20.0 Calculus of kidney (principal); Z53.9 Procedure and treatment not carried out, unspecified reason; G47.33 Obstructive sleep apnea (adult) (pediatric); J44.9 Chronic obstructive pulmonary disease, unspecified; Z95.0 Presence of cardiac pacemaker; Z79.01 Long term (current) use of anticoagulants
CPT/HCPCS: 82962; J0690; J2250; J3010

== ENCOUNTER 2016-06-25 11:26 | Day surgery (SDC) | payer MEDICARE, OTHER ==
[2016-06-20 17:52] LABS: BUN (BLOOD UREA NITROGEN) 6 MG/DL (6-23); CALCIUM, SERUM 8.9 MG/DL (8.5-10.4); CHLORIDE, SERUM 108 MMOL/L (96-112); CO2 (CARBON DIOXIDE) 27 MMOL/L (24-34); CREATININE 0.56 MG/DL (0.55-1.02); GFR AFRICAN AMERICAN 111 ML/MIN (>=60); GFR NON AFRICAN AMERICAN 96 ML/MIN (>=60); GLUCOSE, SERUM 92 MG/DL (60-99); POTASSIUM, SERUM 3.9 MMOL/L (3.5-5.3); SODIUM, SERUM 144 MMOL/L (135-148)
--- NOTE | ~2016-06-25 | OP ---
Record Of Operation [facility] [address] [place]. [address] NAME: LORI THURMAN : 49 STATUS : [facility]#: [id number] AGE: 70 ADM/REG DATE : 06/25/16 MR#: [id number] REPORT SERV DATE: 06/25/16 DICTATED BY: Sam MORALES DATE: 06/25/16 REPORT STATUS : Draft TRANSCRIBED BY: MODL DATE: 06/25/16 DATE OF PROCEDURE: 06/25/2016 PREOPERATIVE DIAGNOSIS: Right ureteral stone with indwelling double-J stent. POSTOPERATIVE DIAGNOSIS: Right ureteral stone with indwelling double-J stent. PROCEDURE: Cystoscopy, removal of right double-J stent, ureteroscopy, basket stone extraction, double-J stent placement. SURGEON: Sam Morales M.D. ANESTHESIA: General endotracheal. COMPLICATIONS: None. DRAINS: 7-Serbian x 22 cm Contour double-J stent. BRIEF HISTORY: Ms. Thurman is a 70-year-old white female, well known to me with a history of recurrent stone disease. She was admitted on 05/28 with evidence of sepsis. She was ultimately found to have a UTI and Proteus bacteremia and a questionable pneumonia. I was ultimately consulted for an obstructing right ureteral stone and placed a stent. She was on sensitivity-directed antibiotics. She is here for delayed stone therapy. The risks of bleeding, infection, anesthesia, injury to adjacent organs, need for a postoperative stent, etc., were discussed. There were no unanswered questions. DESCRIPTION OF PROCEDURE: Under excellent general anesthesia, the patient was prepped and draped in standard lithotomy position. Cystoscopy was performed with a 30-degree lens and revealed a stent emanating from the right orifice. It was removed with a flexible grasper. I then inserted an angled Glidewire through a 5-Serbian open-ended catheter up to the level of the collecting system on the right and alongside the wire, a short rigid ureteroscope was inserted. In about the mid ureter, a fragile-appearing stone was encountered. I was able to engage it in the nitinol basket and even though it fragmented quickly, I was able to remove enough to send for analysis. No other ureteral lesions or stones were noted. I dilutely opacified the collecting system, which would remain mildly dilated, and retrofitted a wire into the cystoscope. I placed a 7-Serbian x 22 cm Contour double-J stent, which coiled nicely in the renal pelvis and bladder. I left the string attached, which was ultimately affixed to the skin with Mastisol and Tegaderm, and I planned to discharge Ms. Thurman as an outpatient with following instructions. DISCHARGE INSTRUCTIONS: 1. Home today. 2. Remove stent in two days on 06/27/2016. 3. Percocet 5/325 one to two p.o. q.4 hours p.r.n. pain, #15. 4. If doing well, follow up in my office in three months with a KUB and proceed as indicated at that time. Record Of Operation [address] [place]. [address] NAME: LORI THURMAN : 49 STATUS : [facility] PAT#: [id number] AGE: 70 ADM/REG DATE : 06/25/16 MR#: [id number] REPORT SERV DATE: 06/25/16 DICTATED BY: Sam MORALES DATE: 06/25/16 REPORT STATUS : Draft TRANSCRIBED BY: SETH DATE: 06/25/16 PARVIN/SETH Sam Morales M.D. / [id number] CC: Ramakrisnha Valencia M.D.
[2016-06-30 17:11] LABS: STONE COMPOSITION TWO DNR (())
[2016-10-23] MEDS ORDERED: XARELTO20 MG PO (15:04)
[2016-10-23] MEDS ORDERED: ATEN25 PO (15:04)
[2016-10-23] MEDS ORDERED: NEUR400 PO (15:05)
[2016-10-23] MEDS ORDERED: NEUR100 PO (15:05)
[2016-10-23] MEDS ORDERED: MONODOX100 MG PO (15:06)
[2016-10-23] MEDS ORDERED: K-TABS10 MEQ PO (15:06)
[2016-10-23] MEDS ORDERED: SYMBICORT 160/41 INH INH (15:06)
[2016-10-23] MEDS ORDERED: HYDROCHLOROT12.5 MG (15:07)
[2016-10-23] MEDS ORDERED: RESTORIL30 MG PO (15:07)
[2016-10-24] MEDS ORDERED: ULTRAM50 PO ×2 (11:31→11:32)
== END 2016-06-25 16:44 | disposition home or self-care (01) ==
LOC: SDC 11:26
PROC: 0T768DZ Dilation of Right Ureter with Intraluminal Device, Via Natural or Artificial Opening Endoscopic (ICD-10-PCS; 2016-06-25)
PROC: 0TC68ZZ Extirpation of Matter from Right Ureter, Via Natural or Artificial Opening Endoscopic (ICD-10-PCS; principal; 2016-06-25 12:45)
DX: N20.1 Calculus of ureter (principal); I10 Essential (primary) hypertension; J44.9 Chronic obstructive pulmonary disease, unspecified; G47.33 Obstructive sleep apnea (adult) (pediatric); M19.90 Unspecified osteoarthritis, unspecified site; D86.9 Sarcoidosis, unspecified; F32.9 Major depressive disorder, single episode, unspecified; Z95.0 Presence of cardiac pacemaker; Z87.01 Personal history of pneumonia (recurrent); Z86.010 Personal history of colon polyps; Z85.3 Personal history of malignant neoplasm of breast; Z88.2 Allergy status to sulfonamides; Z88.5 Allergy status to narcotic agent; Z88.8 Allergy status to other drugs, medicaments and biological substances; Z88.1 Allergy status to other antibiotic agents; Z88.6 Allergy status to analgesic agent; Z91.09 Other allergy status, other than to drugs and biological substances; Z90.49 Acquired absence of other specified parts of digestive tract; Z90.710 Acquired absence of both cervix and uterus; Z90.89 Acquired absence of other organs; Z96.652 Presence of left artificial knee joint; Z96.1 Presence of intraocular lens; Z98.41 Cataract extraction status, right eye; Z98.42 Cataract extraction status, left eye; Z79.51 Long term (current) use of inhaled steroids; Z79.899 Other long term (current) drug therapy; Z98.890 Other specified postprocedural states
CPT/HCPCS: 74420; 80048; 82365; 93005; A9270-GY; C1758; C1769; C2617; J0330; J0690; J2250; J2370; J2405; J3010; Q9967